=== PATIENT | female | born 1970 | race African-American/Black ===

== ENCOUNTER 2016-08-28 19:45 | Emergency (ER) | payer MEDICARE, MEDICAID ==
[2014-12-11 12:30] VITALS: BMI 41.1
[~2016-08-28 19:45] MED LIST: BACLOFEN10 MG PO; COREG 3.1253.125 MG PO; GLIMEPIRIDE2 MG PO; GLUCOPHAGE1000 MG PO; LASIX20 MG PO; LOPRESSOR25 MG PO; NEURONTIN 300300 MG PO; NEXIUM40 MG PO; PRINIVIL20 MG PO; TOPAMAX50 MG PO; ZYRTEC10 MG PO
[2016-08-28 22:04] LABS: HCG URINE NEGATIVE (NEGATIVE)
[2016-08-28 22:05] LABS: APPEARANCE CLEAR (CLEAR); BILIRUBIN NEGATIVE (NEGATIVE); COLOR YELLOW (YELLOW); GLUCOSE NEGATIVE (NEGATIVE); KETONE NEGATIVE (NEGATIVE); LEUKOCYTE ESTERASE NEGATIVE (NEGATIVE); NITRITE NEGATIVE (NEGATIVE); PROTEIN NEGATIVE (NEGATIVE); SPECIFIC GRAVITY 1.005 (1.005-1.020); UROBILINOGEN NORMAL (NORMAL)
[2016-08-28 22:07] LABS: BACTERIA FEW /hpf (NONE SEEN); RED CELLS - URINE 0-5 /hpf (0-5); WHITE CELLS - URINE RARE /hpf (0-5)
== END 2016-08-28 23:44 | disposition home or self-care (01) ==
LOC: D.ER 19:45
PROVIDERS: Family Medicine
DX: M62.838 Other muscle spasm (principal); M54.30 Sciatica, unspecified side; E11.9 Type 2 diabetes mellitus without complications

== ENCOUNTER 2016-09-14 16:03 | Emergency (ER) | payer MEDICARE, MEDICAID ==
[2014-12-11 12:30] VITALS: BMI 41.1
[2016-09-14 16:39] LABS: BASOPHILS 0.2 % (0-2); EOSINOPHILS 0.7 % (0-7); HEMATOCRIT 34.5 % (36.0-48.0); IMMATURE GRANULOCYTES 0.1 % (0-5); LYMPHOCYTES 25.5 % (15-50); MCH 26.3 pg (26.0-34.0); MCHC 31.9 g/dL (31.0-37.0); MCV 82.5 fL (80.0-100.0); NEUTROPHILS 65.5 % (40-80); PLATELET COUNT 398 10x3/uL (130-400); RBC 4.18 10x6/uL (4.00-5.40); RDW 15.6 % (11.5-14.5)
[2016-09-14 16:41] LABS: APPEARANCE HAZY (CLEAR); COLOR YELLOW (YELLOW)
[2016-09-14 16:42] LABS: BILIRUBIN NEGATIVE (NEGATIVE); GLUCOSE NEGATIVE (NEGATIVE); KETONE NEGATIVE (NEGATIVE); LEUKOCYTE ESTERASE 1+ (NEGATIVE); NITRITE NEGATIVE (NEGATIVE); PROTEIN NEGATIVE (NEGATIVE); SPECIFIC GRAVITY 1.015 (1.005-1.020); UROBILINOGEN NORMAL (NORMAL)
[2016-09-14 16:46] LABS: WHITE CELLS - URINE 0-5 /hpf (0-5)
[2016-09-14 16:47] LABS: BACTERIA FEW /hpf (NONE SEEN)
[2016-09-14 16:53] LABS: ALBUMIN 3.9 g/dL (3.4-5.0); ANION GAP 11.8 mmol/L (8-16); BILIRUBIN - TOTAL 0.47 mg/dL (0.2-1.3); CALCIUM 9.1 mg/dL (8.5-10.1); CARBON DIOXIDE 28.3 mmol/L (21.0-32.0); CREATININE - SERUM 0.9 mg/dL (0.6-1.3); POTASSIUM - SERUM 4.1 mmol/L (3.5-5.1); PROTEIN - SERUM 8.6 g/dL (6.4-8.2)
== END 2016-09-14 18:33 | disposition home or self-care (01) ==
LOC: D.ER 16:03
PROVIDERS: Emergency Medicine
DX: R10.84 Generalized abdominal pain (principal); N32.89 Other specified disorders of bladder; E11.9 Type 2 diabetes mellitus without complications

== ENCOUNTER 2016-10-27 14:00 | Observation (INO) | payer MEDICARE, MEDICAID ==
[~2016-10-27] VITALS: Ht 175.3 cm; Wt 115.7 kg
[2016-10-28 02:00] VITALS: Ht 175.3 cm; Wt 115.7 kg
[2016-10-28 16:00] VITALS: BP 116/54
== END 2016-10-28 18:40 | disposition home or self-care (01) ==
LOC: D.ER 14:00 → D.M2 18:50 → OBSVTIME 18:50 → D.M2 10-28 18:40
PROVIDERS: ADMIT Family Medicine
DX: R07.89 Other chest pain (principal); I10 Essential (primary) hypertension; E11.9 Type 2 diabetes mellitus without complications; I42.9 Cardiomyopathy, unspecified

== ENCOUNTER 2017-02-26 22:37 | Emergency (ER) | payer MEDICARE, MEDICAID ==
[2017-02-26 23:14] LABS: HEMATOCRIT 31.6 % (36.0-48.0); HEMOGLOBIN 10.1 g/dL (12-16); LYMPHOCYTES 32.2 % (15-50); MCH 25.8 pg (26.0-34.0); MCV 80.6 fL (80.0-100.0); MEAN PLATELET VOLUME 9.8 fL (7.4-10.4); NEUTROPHILS 56.8 % (40-80); PLATELET COUNT 369 10x3/uL (130-400); RBC 3.92 10x6/uL (4.00-5.40); RDW 15.7 % (11.5-14.5); WBC 8.1 10x3/uL (4.8-10.8)
[2017-02-26 23:29] LABS: ALBUMIN 3.8 g/dL (3.4-5.0); ALKALINE PHOSPHATASE 46 U/L (46-116); ALT (SGPT) 28 U/L (10-68); AMYLASE - SERUM 95 U/L (25-115); BILIRUBIN - TOTAL 0.15 mg/dL (0.2-1.3); CALC OSMOLALITY 273 mosm/kg (275-300); CALCIUM 8.9 mg/dL (8.5-10.1); CARBON DIOXIDE 26.1 mmol/L (21.0-32.0); CHLORIDE - SERUM 101 mmol/L (98-107); CREATININE - SERUM 0.9 mg/dL (0.6-1.3); GLUCOSE 124 mg/dL (74-106); KETONE - SERUM NEGATIVE (NEGATIVE); LIPASE 265 U/L (73-393); POTASSIUM - SERUM 3.9 mmol/L (3.5-5.1); PROTEIN - SERUM 8.5 g/dL (6.4-8.2); SODIUM 137 mmol/L (136-145); UREA NITROGEN 10 mg/dL (7-18); eGFR NON AFRICAN AMERICAN 72 mL/min (90-120)
[2017-02-26 23:55] LABS: APPEARANCE HAZY (CLEAR); BILIRUBIN NEGATIVE (NEGATIVE); COLOR YELLOW (YELLOW); GLUCOSE NEGATIVE (NEGATIVE); KETONE NEGATIVE (NEGATIVE); NITRITE NEGATIVE (NEGATIVE); PROTEIN TRACE mg/dL (NEGATIVE); SPECIFIC GRAVITY 1.005 (1.005-1.020); UROBILINOGEN NORMAL (NORMAL)
== END 2017-02-27 01:28 | disposition home or self-care (01) ==
LOC: D.ER 22:37
PROVIDERS: Emergency Medicine
DX: R10.13 Epigastric pain (principal); K29.00 Acute gastritis without bleeding; E11.9 Type 2 diabetes mellitus without complications; I10 Essential (primary) hypertension

== ENCOUNTER 2017-03-28 19:57 | Emergency (ER) | payer MEDICARE, MEDICAID | END 2017-03-28 21:17 | disposition home or self-care (01) | LOC: D.ER 19:57 | DX: S91.312A Laceration without foreign body, left foot, initial encounter (principal); W26.9XXA Contact with unspecified sharp object(s), initial encounter; Y93.89 Activity, other specified; Y92.019 Unspecified place in single-family (private) house as the place of occurrence of the external cause; E11.9 Type 2 diabetes mellitus without complications ==

== ENCOUNTER → 2018-09-19 13:24 | Outpatient (CLI) | payer MEDICARE | END | disposition home or self-care (01) | LOC: D.MRI 13:24 | PROVIDERS: ATTEND Orthopaedic Surgery | DX: M23.612 Other spontaneous disruption of anterior cruciate ligament of left knee (principal) ==

== ENCOUNTER → 2018-11-07 13:04 | Outpatient (CLI) | payer MEDICARE, MEDICAID | END | disposition home or self-care (01) | LOC: D.RAD 13:04 | PROVIDERS: ATTEND Orthopaedic Surgery | DX: S43.432A Superior glenoid labrum lesion of left shoulder, initial encounter (principal) ==

== ENCOUNTER → 2019-01-19 14:14 | Outpatient (CLI) | payer MEDICARE, MEDICAID | END | disposition home or self-care (01) | LOC: D.HCCECHO 14:00 | PROVIDERS: ATTEND Internal Medicine Cardiovascular Disease | DX: I42.0 Dilated cardiomyopathy (principal) ==

== ENCOUNTER 2019-09-23 22:10 | Inpatient (IN) | payer MEDICAID ==
[~2019-09-23] VITALS: Ht 175.3 cm; Wt 121.8 kg
[2019-09-23] MEDS ORDERED: VICTOZA0.6 MG/0.1 SQ (22:22)
[2019-09-23 22:37] LABS: BASOPHILS 0.2 % (0-2); EOSINOPHILS 1.8 % (0-7); HEMATOCRIT 35.9 % (36.0-48.0); HEMOGLOBIN 11.5 g/dL (12-16); IMMATURE GRANULOCYTES 0.2 % (0-5); LYMPHOCYTES 32.4 % (15-50); MCH 27.4 pg (26.0-34.0); MCV 85.5 fL (80.0-100.0); MEAN PLATELET VOLUME 10.5 fL (7.4-10.4); MONOCYTES 7.7 % (2-11); NEUTROPHILS 57.7 % (40-80); PLATELET COUNT 384 10x3/uL (130-400); RDW 13.7 % (11.5-14.5); WBC 8.5 10x3/uL (4.8-10.8)
[2019-09-23 22:55] LABS: CALC OSMOLALITY 277 mosm/kg (275-300); CALCIUM 8.8 mg/dL (8.5-10.1); CARBON DIOXIDE 25.3 mmol/L (21.0-32.0); CHLORIDE - SERUM 100 mmol/L (98-107); POTASSIUM - SERUM 3.6 mmol/L (3.5-5.1); SODIUM 133 mmol/L (136-145); UREA NITROGEN 10 mg/dL (7-18); eGFR NON AFRICAN AMERICAN 63 mL/min (90-120)
[2019-09-23 22:56] LABS: GLUCOSE 337 mg/dL (74-106)
[2019-09-23 23:07] LABS: ALBUMIN 3.7 g/dL (3.4-5.0); ALKALINE PHOSPHATASE 52 U/L (30-120); ALT (SGPT) 26 U/L (10-68); BILIRUBIN - TOTAL 0.18 mg/dL (0.2-1.3); C-REACTIVE PROTEIN 4.3 mg/dL (0.0-0.9); LIPASE 280 U/L (73-393); MAGNESIUM - SERUM 1.8 mg/dL (1.8-2.4); PRO BNP 98 pg/mL (0-125); PROTEIN - SERUM 8.5 g/dL (6.4-8.2); THYROID STIMULATING HORMONE 1.34 uIU/mL (0.36-3.74); TROPONIN-I < 0.017 ng/mL (0.000-0.060)
[2019-09-23 23:15] LABS: BILIRUBIN NEGATIVE (NEGATIVE); GLUCOSE 1000 mg/dL (NEGATIVE); KETONE NEGATIVE (NEGATIVE); NITRITE NEGATIVE (NEGATIVE); UROBILINOGEN NORMAL (NORMAL)
[2019-09-23 23:17] LABS: BACTERIA MANY /hpf (NEGATIVE); RED CELLS - URINE 0-5 /hpf (0-5); UDS - AMPHET NEGATIVE QUAL (NEGATIVE); UDS - BARB NEGATIVE QUAL (NEGATIVE); UDS - BENZO NEGATIVE QUAL (NEGATIVE); UDS - COCAINE NEGATIVE QUAL (NEGATIVE); UDS - OPIATE NEGATIVE QUAL (NEGATIVE); UDS - PCP NEGATIVE QUAL (NEGATIVE); UDS - THC NEGATIVE QUAL (NEGATIVE); YEAST <1+ /hpf (NONE SEEN)
--- NOTE | 2019-09-24 00:39 | NUR ---
PT ARRIVED ON UNIT VIA WHEELCHAIR ESCORTED BY SPOUSE AND ER NURSE. ORIENTED TO ROOM AND CALL LIGHT. PLACED TELEMETRY PER ORDER.
[2019-09-24] MEDS ORDERED: CYMBALTA60 MG PO (01:04)
[2019-09-24] MEDS ORDERED: VICTOZA0.6 MG/0.1 SQ (01:15)
[2019-09-24] MEDS ORDERED: BASAGLAR K100 UNIT/1 SC (01:16)
[2019-09-24 01:20] VITALS: BP 148/76; BMI 39.6
--- NOTE | 2019-09-24 01:53 | NUR ---
GAVE MORPHINE AND ZOFRAN IVP PER REQUEST FOR PAIN AND NAUSEA. WILL MONITOR FOR EFFECTIVENESS.
[2019-09-24 04:00] VITALS: BP 136/76
[2019-09-24 08:39] VITALS: BP 133/71
[2019-09-24 09:10] VITALS: Ht 175.3 cm; Wt 121.8 kg
--- NOTE | 2019-09-24 11:26 | NUR ---
ASSESSMENT PER FLOW SHEET. APTIENT WITHOUT PAIN,BUT C/O NAUSEA.MEDS PER APR. CALL LIGHT IN REACH
[2019-09-24 12:29] VITALS: BP 127/67
--- NOTE | 2019-09-24 15:17 | NUR ---
DISCHARGE INSTRUCTIONS,STATES UNDERSTANDING. IV DCD WITH CATH TIP INTACT. PATIENT TO GET DRESSED FOR TRANSPORT HOME
--- NOTE | 2019-09-24 16:24 | NUR ---
LEFT UNIT VIA WHEELCHAIR FOR TRANSPORT HOME
--- NOTE | 2019-09-25 13:36 | EC ---
PATIENT:MATILDA DODSON DATE OF SERVICE: 09/24/19 SEX: F MEDICAL RECORD: [id number] DATE OF : 74 LOCATION:[facility] AGE OF PATIENT: 48 ADMISSION DATE: 09/24/19 REFERRING PHYSICIAN: INTERPRETING PHYSICIAN: HARRISON OLIVARES MD ECHOCARDIOGRAM REPORT ECHO CHARGES 4 ECHO COMPLETE Date: 09/24/19 CLINICAL DIAGNOSIS: ATYPICAL CHEST PAIN, HX: CARDIOMYOPATHY ECHOCARDIOGRAPHIC MEASUREMENTS (adult normal given) AC root (d.<3.7cm) 2.8 cm LV Septum d (<1.2 cm> 1.0 cm Valve Excursion 1.98 cm LV Septum (systole) 1.3 cm Left Atria (s.<4.0cm> 3.9 cm LVPW d(<1.2cm) 1.0 cm RV (d.<2.3cm) 2.8 cm LVPW (sytole) 1.2 cm LV diastole(<5.6CM) 6.6 cm MV E-F(>70mm/sec) cm LV systole 5.7 cm LVOT Diameter 1.7 cm MV exc.(>10mm) cm Est.ejection fraction (50-75%) % DOPPLER: LVIT cm/sec A 49 cm/sec E 72 cm/sec LA cm/sec RVSP 30.7 mmHg LVOT 87 cm/sec AOP1/2T m/s Asc. Ao 119 cm/sec RVOT 72 cm/sec RA cm/sec PA 106 cm/sec AV Gradient Peak 5.7 mmHg AV Mean 3.6 mmHg AV Area 1.9 cm MV Gradient Peak 3.7 mmHg MV Mean 1.7 mmHg MV Area cm COMMENTS: Anode Worker: Yudelka HILL Social Media Editor: 2 Dr. Ware TAPE# PACS Pericardial Effusion N DATE OF SERVICE: Adequate 2D, color flow imaging, spectral Doppler, and M-Mode. No LVH. LV internal dimension is normal. Wall motion is normal. EF is greater than or equal to 55%. Aortic valve is tricuspid. No evidence of stenosis by Doppler interrogation. Left atrium is normal. Mitral valve shows no prolapse. Trace MR. Right-sided chambers are grossly normal. Mild TR. TRANSINT:[id number] Voice Confirmation ID: [id number] DOCUMENT ID: [id number] ECHOCARDIOGRAM REPORT [id number] IVORY,MATILDA M HARRISON OLIVARES MD at 1336 CC: [id number] DICTATION DATE: 09/24/19 163 FREEZER MACHINE OPERATOR: [id number] DIS IN 09/24/19 [facility] [address] [id number]
== END 2019-09-24 16:33 | disposition home or self-care (01) | DRG 313 ==
LOC: D.ER 22:10 → D.MS 09-24 00:05
PROVIDERS: Family Medicine; ADMIT Family Medicine; ATTEND Family Medicine
DX: R07.89 Other chest pain (principal); I42.9 Cardiomyopathy, unspecified; I34.0 Nonrheumatic mitral (valve) insufficiency; E11.9 Type 2 diabetes mellitus without complications; I10 Essential (primary) hypertension; M19.90 Unspecified osteoarthritis, unspecified site; M94.0 Chondrocostal junction syndrome [Tietze]

== ENCOUNTER → 2020-05-14 12:53 | Outpatient (CLI) | payer OTHER, MEDICAID ==
[2020-02-02 21:33] VITALS: BMI 40.2
[~2020-05-14 12:53] MED LIST changes: +BASAGLAR K100 UNIT/1 SC; +CYMBALTA60 MG PO; +VICTOZA0.6 MG/0.1 SQ
== END | disposition home or self-care (01) ==
LOC: D.HCCECHO 12:53
PROVIDERS: ATTEND Internal Medicine Cardiovascular Disease
DX: I20.8 Other forms of angina pectoris (principal)

== ENCOUNTER 2020-05-24 09:39 | Emergency (ER) | payer OTHER, MEDICAID ==
[~2020-05-24] VITALS: Ht 175.3 cm; Wt 120.5 kg
[2020-05-24 10:13] VITALS: BP 139/84; Ht 175.3 cm; Wt 120.5 kg
[2020-05-24] MEDS ORDERED: VOLTAREN75 MG PO (10:40)
== END 2020-05-24 11:13 | disposition home or self-care (01) ==
LOC: D.ER 09:39
DX: M54.2 Cervicalgia (principal); E11.9 Type 2 diabetes mellitus without complications; Z79.84 Long term (current) use of oral hypoglycemic drugs

== ENCOUNTER 2020-07-08 19:52 | Emergency (ER) | payer OTHER, MEDICAID ==
[~2020-07-08] VITALS: Ht 175.3 cm; Wt 122.7 kg
[~2020-07-08 19:52] MED LIST changes: +VOLTAREN75 MG PO
[2020-07-08 20:24] VITALS: BP 140/91; Ht 175.3 cm; Wt 122.7 kg
== END 2020-07-08 21:22 | disposition home or self-care (01) ==
LOC: D.ER 19:52
DX: S60.221A Contusion of right hand, initial encounter (principal); S70.01XA Contusion of right hip, initial encounter; X58.XXXA Exposure to other specified factors, initial encounter; I10 Essential (primary) hypertension